=== PATIENT | female | born 1935 | race Caucasian/White ===

== ENCOUNTER 2018-08-17 09:55 | Observation (INO) | payer BC, MEDICARE ==
[2018-08-17] MEDS ORDERED: NORMAL SALINE 1,000 ML IV ONE (10:16)
[2018-08-17 10:39] LABS: Hematocrit 34.1 % (37.0-47.0); Hemoglobin 10.8 gm/dL (12.5-16.0); Mean Cell Volume 96.6 fl (78-100); Mean Corpuscular Hemoglobin 30.6 pg (27-31); Mean Corpuscular Hgb Conc 31.7 g/dl (32-36); Mean Platelet Volume 11.4 fl (8-12.5); Neutrophil # 16.7 K/mm3 (1.3-6.0); Neutrophil % 87.4 % (42-75.0); Platelet Count 183 K/mm3 (150-450); Red Blood Count 3.53 M/mm3 (4.2-5.4); Red Cell Distribution Width 12.8 % (11.5-14.0); White Blood Count 19.1 K/mm3 (4.0-10.5)
[2018-08-17 10:54] LABS: Albumin * 3.1 gm/dl (3.4-5.0); Anion Gap 10.9 mmol/L (6.8-13.8); BUN/Creatinine Ratio 22.8 (9.0-21.6); Bilirubin, Total 1.6 mg/dL (0.0-1.1); Ca. Corrected For Albumin 9.2 mg/dL (8.4-10.2); Calcium * 8.8 mg/dL (7.9-10.9); Carbon Dioxide 26.6 mmol/L (24-32.6); Potassium 4.5 mmol/L (3.4-4.6); Total Protein 6.3 gm/dL (6.2-8.2)
[2018-08-17 11:03] LABS: Urine Bilirubin 1 mg/dl (NEGATIVE); Urine Ketone Negative (NEGATIVE); Urine Nitrite Negative (NEGATIVE); Urine Protein Negative (NEGATIVE); Urine Specific Gravity 1.025 SP.GR. (1.005-1.010); Urine Urobilinogen Normal (NORMAL)
[2018-08-17 11:17] LABS: Urine Appearance Cloudy (CLEAR); Urine Bacteria 2+; Urine Blood 5 /ul (NEGATIVE); Urine Color Dark Yellow; Urine RBC TRACE /hpf (0-5); Urine WBC 25-50 /hpf (0-5)
--- NOTE | 2018-08-17 13:16 | ERNOTE ---
Medical Problem HPI - Narrative Date of Service: 08/17/18 - General Chief Complaint: Nausea/Vomiting Time Seen by Provider: 08/17/18 10:07 Source: family Exam Limitations: clinical condition - Immun/Allergies/Home Medications Immunizations: IMMUNIZATION HX Immunizations Up to Date Yes History of Influenza Vaccine Yes Hx Pneumococcal Vaccination Yes Allergies/Adverse Reactions: Allergies Iodinated Contrast- Oral and IV Dye Allergy (Verified 08/17/18 10:10) Home Medications: HOME MEDICATIONS Aspirin [Children's Aspirin] 162 mg PO DAILY 08/17/18 [Last Taken Unknown] Carbidopa/Levodopa PO TID 08/17/18 [Last Taken Unknown] FLUoxetine HCL [Fluoxetine HCl] 20 mg PO DAILY 08/17/18 [Last Taken Unknown] FLUoxetine HCL [Sarafem] 10 mg PO DAILY 08/17/18 [Last Taken Unknown] Liothyronine Sodium 12.5 mcg PO DAILY 08/17/18 [Last Taken Unknown] Lisinopril [Zestril] 10 mg PO DAILY 08/17/18 [Last Taken Unknown] [place] Carbonate 150 mg PO DAILY 08/17/18 [Last Taken Unknown] Omeprazole 40 mg PO DAILY 08/17/18 [Last Taken Unknown] QUEtiapine FUMARATE [Seroquel] 25 mg PO DAILY 08/17/18 [Last Taken Unknown] Vit A/Vit C/Vit E/Zinc/Copper [Preservision Areds Tablet] 1 each PO DAILY 02/27 [Last Taken Unknown] traZODone HCL [Trazodone HCl] 25 mg PO BID 08/17/18 [Last Taken Unknown] - History of Present History Narrative: Patient really cannot provide any history, this is obtained from the family. She lives at home with the family. Arrives via EMS. Family relates that she has been significantly declining since May. has recent ABx for bronchitis (Levaquin) that she is now finished with. She has been having vomiting and severe diarrhea or the last 24 hours. No apparent pain. She has not been able to take her home medications d/t the vomiting. Now unable to get up on her own d/t generalized weakness. No other history is available from the patient. Timing: constant Modifying Factors - (Improves): Present: other - nothing Modifying Factors - (Worsens): Present: other - nothing Review of Systems - Narrative Narrative: unobtainable d/t patient condition/communication deficit Medical History (Last Reviewed 08/17/18 @ 13:10 by Satinder Huff MD) Hiatal hernia Hx of TIA (transient ischemic attack) and stroke Hx of breast cancer Hx of chronic heart failure Hx of mastitis Hypotension Poor historian Medical record requested from [facility] - 08/17/18 Surgical History: Surgical History (Last Reviewed 08/17/18 @ 13:10 by Satinder Huff MD) History of lumpectomy of left breast Family History: Family History (Last Reviewed 08/17/18 @ 13:10 by Satinder Huff MD) Other No pertinent family history Social History: Preferred Language Chinese Do you have any sabianist or Yes: reorginized adventism cultural preference? Smoking Status Never smoker Alcohol Use sober Drug Use none No Social History Section defined Physical Exam - Physical Exam General Appearance: Present: alert, other - chronically ill appearing Head Exam: Present: normal inspection, no evidence of injury Eye Exam: Normal inspection: bilateral, PERRL: bilateral Ears, Nose, Throat: Present: dry mucous membranes Neck: Present: normal inspection Respiratory: Present: no respiratory distress, normal breath sounds, no accessory muscle use, lungs clear Cardiovascular/Chest: Present: regular rate, rhythm Gastrointestinal/Abdominal: Present: normal bowel sounds, nontender, nondistended, soft Back Exam: Absent: CVA tenderness (R), CVA tenderness (L) Extremity Exam: Present: other - no deformity Neurological Exam: Present: other - significant generalized weakness, no clear acute unilateral focal motor or sensory deficits. Skin Exam: Present: normal color, warm/dry ED Progress - Results and Orders Patient's Lab Results:: I have reviewed the patient's lab results. - Vital Signs Patient's Vital Signs:: I have reviewed the patient's vital signs. Vital Signs: Vital Signs 08/17/18 09:55 08/17/18 11:08 08/17/18 11:51 Temperature 37.8 C 37.2 C Pulse Rate 81 75 72 Respiratory Rate 22 H 19 15 Blood Pressure 149/64 148/86 132/51 O2 Sat by Pulse Oximetry 98 98 96 08/17/18 12:28 08/17/18 12:39 Temperature 37.2 C Pulse Rate 81 83 Respiratory Rate 15 20 Blood Pressure 162/58 H 158/60 H O2 Sat by Pulse Oximetry 95 93 - X-Ray X-Ray #1 X-Ray: abdomen Interpretation: Interp. by me X-ray Comments: I reviewed official radiology report - Progress/Reassessment Chief Complaint: Nausea/Vomiting Progress Note-Subjective: 08/17/18 13:14 IV fluids given. IV ABx. Dehydrated. Will admit obs for further treatment. D/W Dr Philip who will admit. Family agreeable. Departure Clinical Impression: Dehydration, UTI (urinary tract infection), Vomiting - Departure Disposition: Still a patient Condition: Fair
--- NOTE | 2018-08-17 19:07 | HP ---
Chief Complaint - Chief Complaint Date of Service: 08/17/18 Time of Service: 18:36 Chief Complaint: diarrhea, weakness, poor oral intake, not taking her meds, failure to thrive. History of Present Illness: Emma Singh is an 82 yo wh. female who is living in her home and being cared for mostly by her and occasionally by a daughter. They report that in May she was still ambulatory and negotiating stairs. She hasn't been happy and conversant eating well. She began losing some appetite and has a decline to a point where she is no longer able to ambulate. She is barely able to assist in transfers. She has been eating poorly. She stopped taking her medicine about 42 hours ago according to her . Her primary care doctor is in [place] and she last saw him about 4 weeks ago at which time she can still travel. She started having diarrhea yesterday and arrived here by ambulance covered in feces from head to toe. They couldn't get her to eat or drink. She is brought to the hospital per EMS. The emergency room examination showed a very dehydrated patient who is minimally conversant and poorly oriented. She recognizes familiar faces with her family. Her laboratory work shows leukocytosis of 19,000. The urinalysis suggested urinary tract infection with a lot of white cells but nitrates are negative. The flat plate of her abdomen suggests colitis in the descending and sigmoid colon areas etiology is uncertain. Liver enzymes show alkaline phosphatase is elevated at 250 etiology is uncertain. She at least has acute renal failure with an EGFR of 30. How much of this is chronic is unknown at this time. I finished the clinic and clinic work at about 5:30 and came to see her. Family is very upset that I had not been here earlier. She came to the medical floor at about 1:00 this afternoon. She did not have a diet ordered from the emergency room and they were upset that she hadn't had any water to drink. I asked them rather pointedly about how she got into such deplorable condition and it became obvious there. Defensive about it but at her current stage she is more than he can take care of at home. Medical History (Last Reviewed 08/17/18 @ 14:43 by Millie Rajan RN) Hiatal hernia Hx of TIA (transient ischemic attack) and stroke Hx of breast cancer Hx of chronic heart failure Hx of mastitis Hypotension Poor historian Medical record requested from [facility] in [facility] - 08/17/18 Surgical History: Surgical History (Last Reviewed 08/17/18 @ 14:43 by Millie Rajan RN) History of lumpectomy of right breast Family History: Family History (Last Updated 08/17/18 @ 14:43 by Millie Rajan RN) Other History of lumpectomy of right breast No pertinent family history Social History: Patient Lives/Resources With Spouse Utilized Occupation retired Preferred Language Ghanaian Do you have any lutheran or Yes: [facility] cultural preference? Smoking Status Never smoker Have you smoked in the past 12 No months Do you dip or chew tobacco No Alcohol Use sober Drug Use none No Social History Section defined Review Of Systems (GEN) - Review of Systems Generalized/Overall Review: Present: Weakness, Fever, Malaise, Weight loss EENTM: Present: Other - Mouth appears to be heavily coated and what is thought to be fecal material is present. Respiratory: Present: No Symptoms Reported Cardiac: Present: No Symptoms Reported Abdominal: Present: Abdominal Pain, Diarrhea. Absent: Nausea, Vomiting, Hematemesis, Bright blood from rectum Genitourinary: Present: Incontinent, Oliguria Musculoskeletal: Present: Other - Generalized motor weakness Neurological: Present: Depressed, Emotional Problems, Weakness, Pre-existing Deficit - Her says she has the start of Alzheimer's dementia. Skin: Present: No Symptoms Reported, Other - Covered in dried feces on arrival Endocrine: Present: Other - History of hypothyroidism. Takes T3 daily and liothyronine. Immunizations: IMMUNIZATION HX Immunizations Up to Date Yes History of Influenza Vaccine Yes Hx Pneumococcal Vaccination Yes Allergies/Adverse Reactions: Allergies Allergy/AdvReac Type Severity Reaction Status Date / Time Iodinated Contrast- Oral and Allergy Verified 08/17/18 10:10 IV Dye Home Medications: HOME MEDICATIONS Aspirin [Children's Aspirin] 162 mg PO DAILY 08/17/18 [Last Taken Unknown] Carbidopa/Levodopa PO TID 08/17/18 [Last Taken Unknown] FLUoxetine HCL [Fluoxetine HCl] 20 mg PO DAILY 08/17/18 [Last Taken Unknown] FLUoxetine HCL [Sarafem] 10 mg PO DAILY 08/17/18 [Last Taken Unknown] Liothyronine Sodium 12.5 mcg PO DAILY 08/17/18 [Last Taken Unknown] Lisinopril [Zestril] 10 mg PO DAILY 08/17/18 [Last Taken Unknown] [place] Carbonate 150 mg PO DAILY 08/17/18 [Last Taken Unknown] Omeprazole 40 mg PO DAILY 08/17/18 [Last Taken Unknown] QUEtiapine FUMARATE [Seroquel] 25 mg PO DAILY 08/17/18 [Last Taken Unknown] Simvastatin [Zocor] 20 mg PO DAILY 08/17/18 [Last Taken Unknown] Vit A/Vit C/Vit E/Zinc/Copper [Preservision Areds Softgel] 1 each PO BID 08/17/18 [Last Taken Unknown] Vit A/Vit C/Vit E/Zinc/Copper [Preservision Areds Tablet] 1 each PO DAILY 08/17/18 [Last Taken Unknown] Vit B12/Folic Acid/B6/Aa15 [Glycotrol Capsule] 1,000 mg PO DAILY 08/17/18 [Last Taken Unknown] traZODone HCL [Trazodone HCl] 25 mg PO BID 08/17/18 [Last Taken Unknown] Exam - Exam Vital Signs: Vital Signs - Last Taken Temp 37.3 C 08/17/18 13:12 Pulse 71 08/17/18 15:33 Resp 18 08/17/18 13:12 BP 142/55 08/17/18 13:12 Pulse Ox 95 08/17/18 13:12 Constitutional: Present: Alert, Cooperative, Moderate distress, Elderly, Thin and frail. Absent: Oriented x3 ENT Exam: Present: dry mucous membranes, other - Dried black material on the tongue difficult to remove. Eye Exam: bilateral eye: normal inspection, PERRL, EOMI Neck: Present: non-tender, limited range of motion. Absent: lymphadenopathy (R), lymphadenopathy (L) Back Exam: Present: normal inspection Breasts: Present: Exam deferred Respiratory: Present: chest non-tender, lungs clear, normal breath sounds, no respiratory distress, no accessory muscle use Cardiovascular/Chest: Present: normal peripheral pulses, regular rate, rhythm, no chest tenderness, no edema, no gallop, no JVD, no murmur, no rub Peripheral Pulses: carotid (R): 2+, carotid (L): 2+ Abdomen: Present: soft, nontender, nondistended, no rebound tenderness, no hepatospenomegaly, no masses, other - Hyperactive bowel sounds. 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 I asked her if she wanted to try to eat some supper and she said that she did. She said she would try to eat a little bit.. Absent: normal mood/affect, oriented x 3 Appearance: Present: disheveled, impaired insight, impaired recent memory Eye contact: Present: cooperative, good eye contact, decreased rate of speech. Absent: normal speech Thoughts: Present: no apparent hallucination. Absent: auditory hallucinations, delusions, normal mood /affect Diagnostic Studies: Abnormal Lab Results 08/17/18 08/17/18 08/17/18 Range/Units 10:30 10:30 10:58 WBC 19.1 H (4.0-10.5) K/mm3 RBC 3.53 L (4.2-5.4) M/mm3 Hgb 10.8 L (12.5-16.0) gm/dL Hct 34.1 L (37.0-47.0) % MCHC 31.7 L (32-36) g/dl Immature Gran % (Auto) 0.80 H (0.001-0.429) % Immature Gran # (Auto) 0.16 H (0.000-0.0310) K/mm3 Neutrophils % 87.4 H (42-75.0) % Lymphocytes % 4.3 L (20-51) % Neutrophils # 16.7 H (1.3-6.0) K/mm3 Lymphocytes # 0.82 L (1.5-3.5) k/mm3 Monocytes # 1.4 H (0.0-1.0) k/mm3 Chloride 109 H (97-106) mmol/L BUN 39 H (3-23) mg/dL Creatinine 1.71 H (0.4-1.4) mg/dL Est GFR (Non-Af Amer) 30 L (60-130) mL/min BUN/Creatinine Ratio 22.8 H (9.0-21.6) Total Bilirubin 1.6 H (0.0-1.1) mg/dL ALT 13 L (19-67) U/L Alkaline Phosphatase 250 H (50-170) U/L Albumin 3.1 L (3.4-5.0) gm/dl Lipase 53 L (73-393) U/L Urine Blood 5 H (NEGATIVE) /ul Urine Bilirubin 1 H (NEGATIVE) mg/dl Ur Leukocyte Esterase 500 H (NEGATIVE) /ul Urine WBC 25-50 H (0-5) /hpf Ur Epithelial Cells 10-25 H (0-5) /hpf Urine Bacteria 2+ H (NONE) Laboratory Results WBC 19.1 K/mm3 (4.0-10.5) H 08/17/18 10:30 RBC 3.53 M/mm3 (4.2-5.4) L 08/17/18 10:30 Hgb 10.8 gm/dL (12.5-16.0) L 08/17/18 10:30 Hct 34.1 % (37.0-47.0) L 08/17/18 10:30 MCV 96.6 fl (78-100) 08/17/18 10:30 MCH 30.6 pg (27-31) 08/17/18 10:30 MCHC 31.7 g/dl (32-36) L 08/17/18 10:30 RDW 12.8 % (11.5-14.0) 08/17/18 10:30 Plt Count 183 K/mm3 (150-450) 08/17/18 10:30 MPV 11.4 fl (8-12.5) 08/17/18 10:30 Immature Gran % (Auto) 0.80 % (0.001-0.429) H 08/17/18 10:30 Immature Gran # (Auto) 0.16 K/mm3 (0.000-0.0310) H 08/17/18 10:30 Neutrophils % 87.4 % (42-75.0) H 08/17/18 10:30 Lymphocytes % 4.3 % (20-51) L 08/17/18 10:30 Monocytes % 7.3 % (0.0-9) 08/17/18 10:30 Eosinophils % 0.1 % (0.0-3.0) 08/17/18 10:30 Basophils % 0.1 % (0.0-1.0) 08/17/18 10:30 Nucleated RBC % 0.0 k/mm3 (0-1) 08/17/18 10:30 Neutrophils # 16.7 K/mm3 (1.3-6.0) H 08/17/18 10:30 Lymphocytes # 0.82 k/mm3 (1.5-3.5) L 08/17/18 10:30 Monocytes # 1.4 k/mm3 (0.0-1.0) H 08/17/18 10:30 Eosinophils # 0.0 k/mm3 (0.0-0.7) 08/17/18 10:30 Absolute Basophils 0.0 k/mm3 (0.0-0.1) 08/17/18 10:30 Sodium 142 mmol/L (132-142) 08/17/18 10:30 Plasma Sodium 142 mmol/L (130-142) 08/17/18 10:30 Potassium 4.5 mmol/L (3.4-4.6) 08/17/18 10:30 Chloride 109 mmol/L (97-106) H 08/17/18 10:30 Carbon Dioxide 26.6 mmol/L (24-32.6) 08/17/18 10:30 Anion Gap 10.9 mmol/L (6.8-13.8) 08/17/18 10:30 BUN 39 mg/dL (3-23) H 08/17/18 10:30 Creatinine 1.71 mg/dL (0.4-1.4) H 08/17/18 10:30 Est GFR (Non-Af Amer) 30 mL/min (60-130) L 08/17/18 10:30 BUN/Creatinine Ratio 22.8 (9.0-21.6) H 08/17/18 10:30 Random Glucose 103 mg/dL (70-110) 08/17/18 10:30 Lactic Acid, Venous 1.5 mmol/L (0.4-2.0) 08/17/18 10:30 Calcium 8.8 mg/dL (7.9-10.9) 08/17/18 10:30 Calcium Adj for Albumin 9.2 mg/dL (8.4-10.2) 08/17/18 10:30 Total Bilirubin 1.6 mg/dL (0.0-1.1) H 08/17/18 10:30 AST 17 U/L (0-48) 08/17/18 10:30 ALT 13 U/L (19-67) L 08/17/18 10:30 Alkaline Phosphatase 250 U/L (50-170) H 08/17/18 10:30 Total Protein 6.3 gm/dL (6.2-8.2) 08/17/18 10:30 Albumin 3.1 gm/dl (3.4-5.0) L 08/17/18 10:30 Lipase 53 U/L (73-393) L 08/17/18 10:30 Urine Color Dark yellow 08/17/18 10:58 Urine Appearance Cloudy (CLEAR) 08/17/18 10:58 Urine pH 6.0 pH (5.0-7.0) 08/17/18 10:58 Ur Specific [place] 1.025 SP.GR. (1.005-1.010) 08/17/18 10:58 Urine Protein Negative mg/dL (NEGATIVE) 08/17/18 10:58 Urine Glucose (UA) Negative mg/dL (NEGATIVE) 08/17/18 10:58 Urine Ketones Negative mg/dL (NEGATIVE) 08/17/18 10:58 Urine Blood 5 /ul (NEGATIVE) H 08/17/18 10:58 Urine Nitrate Negative (NEGATIVE) 08/17/18 10:58 Urine Bilirubin 1 mg/dl (NEGATIVE) H 08/17/18 10:58 Urine Ictotest Negative (NEGATIVE) 08/17/18 10:58 Urine Urobilinogen Normal EU/dl (NORMAL) 08/17/18 10:58 Ur Leukocyte Esterase 500 /ul (NEGATIVE) H 08/17/18 10:58 Urine RBC Trace /hpf (0-5) 08/17/18 10:58 Urine WBC 25-50 /hpf (0-5) H 08/17/18 10:58 Ur Epithelial Cells 10-25 /hpf (0-5) H 08/17/18 10:58 Urine Bacteria 2+ (NONE) H 08/17/18 10:58 Urine Culture Comments Culture to follow 08/17/18 10:58 Stool Occult Blood N 08/17/18 11:39 Stl C.difficile Tox A&B Negative (Negative) 08/17/18 11:40 Assessment/Plan - Narrative Narrative: I will hold virtually all medications except for the thyroid and JEFF inhibitor. I'll recheck her lab and see if there's been any improvement in renal function and other parameters tomorrow morning. We'll monitor to see if the diarrhea continues. Stool analysis was set up in the emergency room. Blood cultures were also done as well as a UA and a urine culture. She received 1 L of IV fluid in the emergency room and looks better. Because of her renal failure I'm going to be very cautious and further fluid resuscitation and weight on morning lab before giving her more fluids. Because I don't know if her renal failure is chronic or acute I'll reassess that daily. If she has chronic renal failure then she may have some buildup of lithium and perhaps of quetiapine. If she has lithium toxicity then that could be aggravating her diarrhea. A lithium level was also ordered for tomorrow morning. She has some history of heart failure and so fluid volume replacement again has to be very cautiously administered. Reassessed for morning.
[2018-08-17 20:18] LABS: T4 Free * 0.52 ng/dL (0.76-1.46); TSH * 0.037 uIU/mL (0.358-3.74)
[2018-08-18 05:47] LABS: Hematocrit 31.6 % (37.0-47.0); Hemoglobin 9.8 gm/dL (12.5-16.0); Mean Cell Volume 96.6 fl (78-100); Mean Platelet Volume 12.4 fl (8-12.5); Platelet Count 167 K/mm3 (150-450); Red Blood Count 3.27 M/mm3 (4.2-5.4); Red Cell Distribution Width 13.1 % (11.5-14.0)
[2018-08-18 05:53] LABS: Albumin * 2.8 gm/dl (3.4-5.0); Anion Gap 14.5 mmol/L (6.8-13.8); BUN/Creatinine Ratio 26.6 (9.0-21.6); Bilirubin, Total 1.2 mg/dL (0.0-1.1); Ca. Corrected For Albumin 9.2 mg/dL (8.4-10.2); Calcium * 8.6 mg/dL (7.9-10.9); Carbon Dioxide 22.4 mmol/L (24-32.6); Potassium 3.9 mmol/L (3.4-4.6)
[2018-08-18] MEDS: LIOTHYRONINE SODIUM 5 MCG TABLET PO SCH (08:55)
[2018-08-18] MEDS: LISINOPRIL 10 MG TABLET PO SCH (08:55)
[2018-08-18] MEDS: POTASSIUM CHLORIDE 20 MEQ in DEXTROSE 5%-0.5 NORMAL SALINE 990 ML IV SCH (09:45)
[2018-08-18] MEDS: CARBIDOPA/LEVODOPA 25/100 1 TAB TABLET PO SCH ×2 (14:23→21:28)
[2018-08-18] MEDS: FLUoxetine HCL 10 MG CAPSULE PO SCH (14:23)
--- NOTE | 2018-08-18 16:55 | PN ---
Subjective - Date and Time Seen Date: 08/18/18 Time: 08:15 Subjective Narrative: This 82 yo wh female was admitted yesterday with dehydration, acute renal failure, diarrhea, adult failure to thrive. I spoke with Dr. Geneva Winston MD at [facility] this afternoon. She shared some lab from this summer that showed normal renal function so I suspect her renal failure is pre-renal and acute from the marked dehydration. This mornings lab #s are improved. The lithium level came ba ck this afternoon and is elevated at 1.3. She usually keeps it around .4-.5. Her white count has dropped from 19,000-16,000. The EGFR has improved from 30- 39. Stool analysis is still pending. Her mental status has improved and she is more responsive and conversational today. I spoke with her and reviewed today's results with him and also reviewed my conversation with Dr. Winston. I will continue to hold the lithium. I'll start her back on fluoxetine 10 mg 1 daily and then maybe 20 mg tomorrow. I'll resume her Quetiapine 25 mg at hs and trazodone at at bedtime. She has eaten better today than she has in some time. I'll recheck lab again tomorrow morning and perhaps give her another liter of fluid. 3 potential causes for her diarrhea would be the Leiothyronine and causing a hyperthyroid status, 2an infectious colitis of the descending and sigmoid colon, and 3lithium toxicity. Case management is working on correction placement. She has [employer] and Medicare. It is possible [employer] may approve her to skilled before having the 3 midnight requirement. We are awaiting a response from them. Objective - Review of Systems Generalized/Overall Review: Reports: Weakness EENTM: Reports: No Symptoms Reported Respiratory: Reports: No Symptoms Reported Cardiac: Reports: No Symptoms Reported Abdominal: Reports: Diarrhea - She has only had one loose stool this morning. Genitourinary Symptoms: Reports: No Symptoms Reported, Other - The lab suggests a UTI and it was a cath specimen that probably is. Otherwise is probably fecally contaminated. Musculoskeletal Complaints: Reports: No Symptoms Reported Neurological: Reports: Depressed, Emotional Problems, Weakness, Pre-existing Deficit - She has some cognitive deficit. Until she is fully rehydrated and recovered from this event we will be able to assess her mental status. She is improved from yesterday however. Skin: Reports: No Symptoms Reported Endocrine: Reports: No Symptoms Reported - Vitals Vitals: Last Vital Signs Temp 36.8 C 08/18/18 15:00 Pulse 64 08/18/18 15:00 Resp 18 08/18/18 15:00 BP 94/55 08/18/18 15:00 Pulse Ox 95 08/18/18 15:00 - Abnormal Lab Findings Abnormal Lab Findings: Abnormal Lab Results 08/17/18 08/17/18 08/18/18 Range/Units 10:30 10:30 05:36 WBC 16.0 H (4.0-10.5) K/mm3 RBC 3.27 L (4.2-5.4) M/mm3 Hgb 9.8 L (12.5-16.0) gm/dL Hct 31.6 L (37.0-47.0) % MCHC 31.0 L (32-36) g/dl Immature Gran % (Auto) 0.60 H (0.001-0.429) % Immature Gran # (Auto) 0.10 H (0.000-0.0310) K/mm3 Neutrophils % 81.0 H (42-75.0) % Lymphocytes % 10.2 L (20-51) % Neutrophils # 13.0 H (1.3-6.0) K/mm3 Monocytes # 1.2 H (0.0-1.0) k/mm3 Sodium (132-142) mmol/L Plasma Sodium (130-142) mmol/L Chloride (97-106) mmol/L Carbon Dioxide (24-32.6) mmol/L Anion Gap (6.8-13.8) mmol/L BUN (3-23) mg/dL Est GFR (Non-Af Amer) (60-130) mL/min BUN/Creatinine Ratio (9.0-21.6) Total Bilirubin (0.0-1.1) mg/dL ALT (19-67) U/L Alkaline Phosphatase (50-170) U/L Total Protein (6.2-8.2) gm/dL Albumin (3.4-5.0) gm/dl TSH 0.037 L (0.358-3.74) uIU/mL Free T4 0.52 L (0.76-1.46) ng/dL [place] 1.3 H (0.6-1.2) mmol/L 08/18/18 Range/Units 05:36 WBC (4.0-10.5) K/mm3 RBC (4.2-5.4) M/mm3 Hgb (12.5-16.0) gm/dL Hct (37.0-47.0) % MCHC (32-36) g/dl Immature Gran % (Auto) (0.001-0.429) % Immature Gran # (Auto) (0.000-0.0310) K/mm3 Neutrophils % (42-75.0) % Lymphocytes % (20-51) % Neutrophils # (1.3-6.0) K/mm3 Monocytes # (0.0-1.0) k/mm3 Sodium 144 H (132-142) mmol/L Plasma Sodium 144 H (130-142) mmol/L Chloride 111 H (97-106) mmol/L Carbon Dioxide 22.4 L (24-32.6) mmol/L Anion Gap 14.5 H (6.8-13.8) mmol/L BUN 37 H (3-23) mg/dL Est GFR (Non-Af Amer) 39 L D (60-130) mL/min BUN/Creatinine Ratio 26.6 H (9.0-21.6) Total Bilirubin 1.2 H (0.0-1.1) mg/dL ALT 13 L (19-67) U/L Alkaline Phosphatase 181 H (50-170) U/L Total Protein 6.0 L (6.2-8.2) gm/dL Albumin 2.8 L (3.4-5.0) gm/dl TSH (0.358-3.74) uIU/mL Free T4 (0.76-1.46) ng/dL [place] (0.6-1.2) mmol/L - Exam Constitutional: Present: Alert, Cooperative, Elderly, Thin and frail. Absent: Oriented x3 - Oriented to familiar faces and location. Not oriented to time or date. ENT Exam: Present: normal ENT inspection Neck: Present: non-tender Breasts: Present: Exam deferred Respiratory: Present: chest non-tender, lungs clear, normal breath sounds Cardiovascular/Chest: Present: normal peripheral pulses, regular rate, rhythm, no chest tenderness, no edema, no gallop, no JVD, no murmur, no rub Abdomen: Present: Normal bowel sounds - Bowels are hyperactive on admission and are normoactive today., soft, nontender, nondistended, no rebound tenderness, no hepatospenomegaly, no masses /Rectal: Present: Exam deferred Extremity: Present: non-tender, normal inspection, no pedal edema, no calf tenderness, normal capillary refill. Absent: normal range of motion Skin Exam: Present: normal color, warm/dry, no cyanosis Lymphatic: Present: no adenopathy Neurologic: Present: stone paver II-XII nml as tested, abnormal gait - She walked a few steps with a walker today with standby assist from physical therapy., motor weakness Appearance: Present: impaired insight, impaired recent memory. Absent: impaired remote memory Eye contact: Present: cooperative, good eye contact, decreased rate of speech, other - She is ataxic and apraxic. Absent: normal speech Thoughts: Present: no apparent hallucination. Absent: delusions Assessment/Plan Plan Narrative: See narrative above. - Problems/Diagnosis (1) Dehydration Problem: Acute (2) Diarrhea due to drug Problem: Resolved (3) [place] toxicity Problem: Acute Qualifiers: Encounter type: initial encounter Injury intent: accidental or unintentional Qualified Code(s): T56.891A - Toxic effect of other metals, accidental (unintentional), initial encounter (4) Colitis Problem: Acute (5) Alzheimer's dementia Problem: Chronic Qualifiers: Alzheimer's disease onset: late-onset Dementia behavioral disturbance: with behavioral disturbance Qualified Code(s): G30.1 - Alzheimer's disease with late onset; F02.81 - Dementia in other diseases classified elsewhere with behavioral disturbance (6) Acute renal injury due to hypovolemia Problem: Acute (7) Adult failure to thrive Problem: Chronic (8) Leukocytosis Problem: Acute Qualifiers: Leukocytosis type: bandemia Qualified Code(s): D72.825 - Bandemia (9) Acute hypernatremia Problem: Resolved (10) Anemia Problem: Chronic Qualifiers: Anemia type: other cause Other causes of anemia: chronic disease, other Qualified Code(s): D63.8 - Anemia in other chronic diseases classified elsewhere (11) UTI (urinary tract infection) Problem: Acute Qualifiers: Urinary tract infection type: acute cystitis Hematuria presence: without hematuria Qualified Code(s): N30.00 - Acute cystitis without hematuria
[2018-08-18] MEDS ORDERED: traZODone HCL 50 MG TABLET PO SCH (21:00)
[2018-08-19] MEDS: POTASSIUM CHLORIDE 20 MEQ in DEXTROSE 5%-0.5 NORMAL SALINE 990 ML IV SCH ×3 (02:18→08:48)
[2018-08-19 05:24] LABS: Hematocrit 30.5 % (37.0-47.0); Hemoglobin 9.3 gm/dL (12.5-16.0); Mean Cell Volume 98.4 fl (78-100); Mean Corpuscular Hgb Conc 30.5 g/dl (32-36); Mean Platelet Volume 11.8 fl (8-12.5); Neutrophil # 7.4 K/mm3 (1.3-6.0); Neutrophil % 71.5 % (42-75.0); Platelet Count 143 K/mm3 (150-450); Red Cell Distribution Width 13.1 % (11.5-14.0); White Blood Count 10.3 K/mm3 (4.0-10.5)
[2018-08-19 05:41] LABS: Albumin * 2.5 gm/dl (3.4-5.0); Anion Gap 9.9 mmol/L (6.8-13.8); Bilirubin, Total 0.7 mg/dL (0.0-1.1); CRP 2.4 mg/dL (0.0-0.9); Ca. Corrected For Albumin 9.1 mg/dL (8.4-10.2); Calcium * 8.2 mg/dL (7.9-10.9); Carbon Dioxide 24.1 mmol/L (24-32.6); Total Protein 5.6 gm/dL (6.2-8.2)
[2018-08-19] MEDS: CARBIDOPA/LEVODOPA 25/100 1 TAB TABLET PO SCH (07:45)
[2018-08-19] MEDS ORDERED: QUEtiapine FUMARATE 25 MG TABLET PO SCH (09:00)
[2018-08-19] MEDS: LIOTHYRONINE SODIUM 5 MCG TABLET PO SCH (09:38)
[2018-08-19] MEDS: FLUoxetine HCL 10 MG CAPSULE PO SCH (09:39)
[2018-08-19] MEDS: LISINOPRIL 10 MG TABLET PO SCH (09:40)
--- NOTE | 2018-08-19 10:14 | PN ---
Subjective - Date and Time Seen Date: 08/19/18 Time: 09:17 Subjective Narrative: Mrs. Singh continues to improve. she had an uneventful night. No more diarrhea. Eating small amounts only. Drinking Ensure. Case management still working on SNF placement. Objective - Review of Systems Generalized/Overall Review: Reports: Weakness, Malaise, Fatigue, Weight loss EENTM: Reports: No Symptoms Reported Respiratory: Reports: No Symptoms Reported Cardiac: Reports: No Symptoms Reported Abdominal: Reports: No Symptoms Reported, Other - poor appetite Genitourinary Symptoms: Reports: No Symptoms Reported Musculoskeletal Complaints: Reports: No Symptoms Reported Neurological: Reports: Weakness, Pre-existing Deficit - memory impairment and behaviors. Skin: Reports: No Symptoms Reported Endocrine: Reports: No Symptoms Reported - Vitals Vitals: Last Vital Signs Temp 35.8 C L 08/19/18 07:29 Pulse 62 08/19/18 07:29 Resp 12 08/19/18 07:29 BP 143/55 08/19/18 07:29 Pulse Ox 93 08/19/18 07:29 - Abnormal Lab Findings Abnormal Lab Findings: Abnormal Lab Results 08/17/18 08/19/18 08/19/18 Range/Units 10:30 05:15 05:15 RBC 3.10 L (4.2-5.4) M/mm3 Hgb 9.3 L (12.5-16.0) gm/dL Hct 30.5 L (37.0-47.0) % MCHC 30.5 L (32-36) g/dl Plt Count 143 L (150-450) K/mm3 Lymphocytes % 16.2 L (20-51) % Monocytes % 9.3 H (0.0-9) % Neutrophils # 7.4 H (1.3-6.0) K/mm3 ESR 47 H (0-15) mm/hr Chloride (97-106) mmol/L BUN (3-23) mg/dL Est GFR (Non-Af Amer) (60-130) mL/min BUN/Creatinine Ratio (9.0-21.6) Random Glucose (70-110) mg/dL ALT (19-67) U/L C-Reactive Prot, Quant (0.0-0.9) mg/dL Total Protein (6.2-8.2) gm/dL Albumin (3.4-5.0) gm/dl [place] 1.3 H (0.6-1.2) mmol/L 08/19/18 Range/Units 05:15 RBC (4.2-5.4) M/mm3 Hgb (12.5-16.0) gm/dL Hct (37.0-47.0) % MCHC (32-36) g/dl Plt Count (150-450) K/mm3 Lymphocytes % (20-51) % Monocytes % (0.0-9) % Neutrophils # (1.3-6.0) K/mm3 ESR (0-15) mm/hr Chloride 108 H (97-106) mmol/L BUN 26 H (3-23) mg/dL Est GFR (Non-Af Amer) 49 L D (60-130) mL/min BUN/Creatinine Ratio 23.0 H (9.0-21.6) Random Glucose 117 H D (70-110) mg/dL ALT 4 L (19-67) U/L C-Reactive Prot, Quant 2.4 H (0.0-0.9) mg/dL Total Protein 5.6 L (6.2-8.2) gm/dL Albumin 2.5 L (3.4-5.0) gm/dl [place] (0.6-1.2) mmol/L - Exam Constitutional: Present: Alert. Absent: Oriented x3 - to familiar faces and location. Not time or date. ENT Exam: Present: normal ENT inspection, moist mucous membranes Neck: Present: non-tender, limited range of motion. Absent: lymphadenopathy (R), lymphadenopathy (L), thyromegaly Breasts: Present: Exam deferred Respiratory: Present: chest non-tender, lungs clear, normal breath sounds, no respiratory distress, no accessory muscle use Cardiovascular/Chest: Present: normal peripheral pulses, regular rate, rhythm, no chest tenderness, no edema, no JVD, no murmur, no rub Abdomen: Present: Normal bowel sounds, soft, nontender, nondistended, no rebound tenderness, no hepatospenomegaly, no masses /Rectal: Present: Exam deferred Extremity: Present: non-tender, normal inspection, no pedal edema, no calf tenderness, normal capillary refill. Absent: normal range of motion, lower extremity edema, leg pain Skin Exam: Present: pallor Lymphatic: Present: no adenopathy Neurologic: Present: pt sitter II-XII nml as tested, alert, abnormal gait - Took a few steps with a walker yesterday.. Absent: normal mood/affect, oriented x 3 Appearance: Present: disheveled, impaired insight, impaired recent memory Eye contact: Present: cooperative, good eye contact, decreased rate of speech, other - ataxia and apraxia Thoughts: Absent: normal thought pattern, no apparent hallucination, auditory hallucinations, delusions, flight of ideas, tactile hallucinations, visual hallucinations, normal mood /affect Assessment/Plan Plan Narrative: This 82 yr old wh female is making gradual improvement. She is more alert again today. She is eating some. No more diarrhea. Lab: The CBC shows improvement in the white count down to 10,000. There are still some premature neutrophils. The hemoglobin He is down to 9.3 g and hematocrit of 30.5%. The MCV and RDW are normal. The sedimentation rate is elevated at 47 and a C-reactive protein is also elevated. The EGFR is up to 49. The BUN is 26 and creatinine of 1.3 with a BUN to creatinine ratio of 23. Glucose is 117 this morning. Liver function studies are all normal and the alkaline phosphatase is dropped from 250 on admission to 118 today. Etiology of why it was elevated in the first place is unknown. Her protein is low at 5.6 and albumin is low at 2.5. Microbiology showed blood cultures are no growth at 48 hours. The stool culture has not grown any pathogens. The urine culture has grown staph epi which is fairly resistant but is most likely a contaminant. The chest x-ray shows a left lower lobe and lingular lobe atelectasis versus pneumonia. Clinically I favor the former. Now that she is better hydrated I will repeat her chest x-ray. 1. Administer 1 L of D5 normal saline today 2. Repeat Rocephin 1 g IV piggyback 3. Continue physical and occupational therapy 4. Continue to work on care home placement. 5. Chest x-ray tomorrow morning. 6. Continue to hold lithium. - Problems/Diagnosis (1) Dehydration Problem: Acute (2) Diarrhea due to drug Problem: Resolved (3) [place] toxicity Problem: Acute Qualifiers: Encounter type: initial encounter Injury intent: accidental or unintentional Qualified Code(s): T56.891A - Toxic effect of other metals, accidental (unintentional), initial encounter (4) Colitis Problem: Acute (5) Alzheimer's dementia Problem: Chronic Qualifiers: Alzheimer's disease onset: late-onset Dementia behavioral disturbance: with behavioral disturbance Qualified Code(s): G30.1 - Alzheimer's disease with late onset; F02.81 - Dementia in other diseases classified elsewhere with behavioral disturbance (6) Acute renal injury due to hypovolemia Problem: Acute (7) Adult failure to thrive Problem: Chronic (8) Leukocytosis Problem: Acute Qualifiers: Leukocytosis type: bandemia Qualified Code(s): D72.825 - Bandemia (9) Acute hypernatremia Problem: Resolved (10) Anemia Problem: Chronic Qualifiers: Anemia type: other cause Other causes of anemia: chronic disease, other Qualified Code(s): D63.8 - Anemia in other chronic diseases classified elsewhere (11) UTI (urinary tract infection) Problem: Acute Qualifiers: Urinary tract infection type: acute cystitis Hematuria presence: without hematuria Qualified Code(s): N30.00 - Acute cystitis without hematuria
--- NOTE | 2018-08-19 11:06 | DS ---
(1) Dehydration Problem: Resolved (2) Diarrhea due to drug Problem: Resolved (3) [place] toxicity Problem: Acute Qualifiers: Encounter type: initial encounter Injury intent: accidental or unintentional Qualified Code(s): T56.891A - Toxic effect of other metals, accidental (unintentional), initial encounter (4) Colitis Problem: Resolved (5) Alzheimer's dementia Problem: Chronic Qualifiers: Alzheimer's disease onset: late-onset Dementia behavioral disturbance: with behavioral disturbance Qualified Code(s): G30.1 - Alzheimer's disease with late onset; F02.81 - Dementia in other diseases classified elsewhere with behavioral disturbance (6) Acute renal injury due to hypovolemia Problem: Resolved (7) Adult failure to thrive Problem: Chronic (8) Leukocytosis Problem: Resolved Qualifiers: Leukocytosis type: bandemia Qualified Code(s): D72.825 - Bandemia (9) Acute hypernatremia Problem: Resolved (10) Anemia Problem: Chronic Qualifiers: Anemia type: other cause Other causes of anemia: chronic disease, other Qualified Code(s): D63.8 - Anemia in other chronic diseases classified elsewhere (11) UTI (urinary tract infection) Problem: Resolved Qualifiers: Urinary tract infection type: acute cystitis Hematuria presence: without hematuria Qualified Code(s): N30.00 - Acute cystitis without hematuria Description of Stay: Tara Singh is an 82-year-old female who became acutely ill about 24 hours before arriving in the emergency room having had multiple episodes of diarrhea. On arrival she was hypotensive and extremely dehydrated. She was covered in feces from head to toe. She was stabilized in the emergency room with fluid resuscitation. She was appropriately cultured with blood, stool, and urine. She was admitted for the treatment of her diarrhea, dehydration, and to determine the cause of the diarrhea. Laboratory work was done in the emergency room. A lithium level was drawn but is a send out test and came back yesterday toxic at 1.3. Urine culture grew out staph epi which is almost certainly a contaminant. Blood cultures are no growth 2 at 48 hours. The stool culture has not grown out any pathogens to date. The chest x-ray showed left lower lobe and lingular lobe atelectasis versus pneumonia. There are no clinical findings to support pneumonia. Auscultation of the chest is clear. Initially her white count was elevated at 19,000. It dropped to 16,000 yesterday and the 10,000 today. She had significant bandemia yesterday and before yesterday but there are very few premature white cells on today's specimen. The lithium level yesterday dropped to 1.1. I have spoken with Dr. Geneva Jones M.D. who has been caring for Mrs. Singh for many years as a psychiatrist. I reviewed her medications with her and also reviewed her lab work. I believe lithium toxicity is what triggered the diarrhea and the severe dehydration and constellation of other problems thereby associated. She has been slowly rehydrated. She received 1 L of normal saline in the emergency room and another liter on the 08/17 on the floor and then another liter yesterday and it has been a continuous drip since yesterday at 125 mL per hour. She was very obtunded on admission. Yesterday she was answering a few questions appropriately but was significantly ataxic and apraxic. Today she is much more conversational and much less ataxic and apraxic. She developed some twitching and it is probably from being off of her Sinemet. That was resumed yesterday. I also allowed her to take her fluoxetine 10 mg yesterday and 20 mg this morning. I allowed her trazodone 25 mg at bedtime and and Quetiapine 25 mg at bedtime. I did not see any hallucinations or any overt behaviors. 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 These medicines have helped her be more stable. Dr. Winston believes she should stay on trazodone 25 mg twice a day to help control. Physical therapy has been working with her since yesterday. They were able to stand and take a few steps with a walker. Today they have had her up walking and she is walking better today. The patient is a good rehabilitation candidate. [place] halfway facility [place] been [place] at [place] in [place]. I will check an electrocardiogram prior to her discharge. Dr. Winston told me she has a history of prolonged QTc intervals. The Seroquel effects that significantly. I will also order a urinalysis and to do a mini cath to get the specimen. Her dispo sition is much improved. Procedures Performed: none Results and Findings: Pending Mircobiology Results 08/17/18 11:54 Blood Blood Culture - Preliminary NO GROWTH 24 HOURS 08/17/18 10:30 Blood Blood Culture - Preliminary NO GROWTH 24 HOURS 08/17/18 11:39 Stool Stool Culture - Preliminary No Pathogens Isolated Lab Pending Results 08/17/18 10:30: Erick 1.3 H 08/17/18 10:30: WBC 19.1 H, RBC 3.53 L, Hgb 10.8 L, Hct 34.1 L, MCV 96.6, MCH 30.6, MCHC 31.7 L, RDW 12.8, Plt Count 183, MPV 11.4, Immature Gran % (Auto) 0.80 H, Immature Gran # (Auto) 0.16 H, Neutrophils % 87.4 H, Lymphocytes % 4.3 L, Monocytes % 7.3, Eosinophils % 0.1, Basophils % 0.1, Nucleated RBC % 0.0, Neutrophils # 16.7 H, Lymphocytes # 0.82 L, Monocytes # 1.4 H, Eosinophils # 0.0, Absolute Basophils 0.0 08/17/18 10:30: Sodium 142, Plasma Sodium 142, Potassium 4.5, Chloride 109 H, Carbon Dioxide 26.6, Anion Gap 10.9, BUN 39 H, Creatinine 1.71 H, Est GFR (Non- Af Amer) 30 L, BUN/Creatinine Ratio 22.8 H, Random Glucose 103, Calcium 8.8, Calcium Adj for Albumin 9.2, Total Bilirubin 1.6 H, AST 17, ALT 13 L, Alkaline Phosphatase 250 H, Total Protein 6.3, Albumin 3.1 L, Lipase 53 L 08/17/18 10:30: Lactic Acid, Venous 1.5 08/17/18 10:30: TSH 0.037 L, Free T4 0.52 L 08/17/18 10:58: Urine Color Dark yellow, Urine Appearance Cloudy, Urine pH 6.0, Ur Specific [place] 1.025, Urine Protein Negative, Urine Glucose (UA) Negative, Urine Ketones Negative, Urine Blood 5 H, Urine Nitrate Negative, Urine Bilirubin 1 H, Urine Ictotest Negative, Urine Urobilinogen Normal, Ur Leukocyte Esterase 500 H, Urine RBC Trace, Urine WBC 25-50 H, Ur Epithelial Cells 10-25 H, Urine Bacteria 2+ H, Urine Culture Comments Culture to follow 08/17/18 11:39: Stool Occult Blood N 08/17/18 11:40: Stl C.difficile Tox A&B Negative 08/17/18 21:26: Free T3 1.4 L, Total T3 36 L 08/17/18 21:26: Lactic Acid, Venous 1.0 08/18/18 05:36: WBC 16.0 H, RBC 3.27 L, Hgb 9.8 L, Hct 31.6 L, MCV 96.6, MCH 30.0, MCHC 31.0 L, RDW 13.1, Plt Count 167, MPV 12.4, Immature Gran % (Auto) 0.60 H, Immature Gran # (Auto) 0.10 H, Neutrophils % 81.0 H, Lymphocytes % 10.2 L, Monocytes % 7.7, Eosinophils % 0.4, Basophils % 0.1, Nucleated RBC % 0.0, Neutrophils # 13.0 H, Lymphocytes # 1.64, Monocytes # 1.2 H, Eosinophils # 0.1, Absolute Basophils 0.0 08/18/18 05:36: Sodium 144 H, Plasma Sodium 144 H, Potassium 3.9, Chloride 111 H, Carbon Dioxide 22.4 L, Anion Gap 14.5 H, BUN 37 H, Creatinine 1.39, Est GFR (Non-Af Amer) 39 L D, BUN/Creatinine Ratio 26.6 H, Random Glucose 88, Calcium 8.6, Calcium Adj for Albumin 9.2, Total Bilirubin 1.2 H, AST 17, ALT 13 L, Alkaline Phosphatase 181 H, Total Protein 6.0 L, Albumin 2.8 L 08/18/18 05:36: Lactic Acid, Venous 1.2 08/18/18 05:36: Erick 1.1 08/19/18 05:15: WBC 10.3 D, RBC 3.10 L, Hgb 9.3 L, Hct 30.5 L, MCV 98.4, MCH 30.0, MCHC 30.5 L, RDW 13.1, Plt Count 143 L, MPV 11.8, Immature Gran % (Auto) 0.30, Immature Gran # (Auto) 0.03, Neutrophils % 71.5, Lymphocytes % 16.2 L, Monocytes % 9.3 H, Eosinophils % 2.4, Basophils % 0.3, Nucleated RBC % 0.0, Neutrophils # 7.4 H, Lymphocytes # 1.67, Monocytes # 1.0, Eosinophils # 0.3, Absolute Basophils 0.0 08/19/18 05:15: ESR 47 H 08/19/18 05:15: Sodium 138, Plasma Sodium 138, Potassium 4.0, Chloride 108 H, Carbon Dioxide 24.1, Anion Gap 9.9, BUN 26 H, Creatinine 1.13, Est GFR (Non-Af Amer) 49 L D, BUN/Creatinine Ratio 23.0 H, Random Glucose 117 H D, Calcium 8.2, Calcium Adj for Albumin 9.1, Total Bilirubin 0.7, AST 12, ALT 4 L, Alkaline Phosphatase 118, C-Reactive Prot, Quant 2.4 H, Total Protein 5.6 L, Albumin 2.5 L Discharge Location: [facility] Disposition: SNF Condition: Fair Face to Face Encounter completed per [facility] Guidelines: No Level of Care: SNF Discharge Activity: Activity as tolerated, Other - Up in chair for al meals and prn. PT/OT to walk and exercise daily. Discharge Diet: Mech soft, Other - Ensure tid between meals Fdc Therapy: Physicial Therapy, Occupation Therapy Additional Patient Instructions (free text): -Please make TCM appointment unless retirement discharge. Thank you! Jyothi @ [phone]. Complete Home Medications List: Complete Home Medication List: Aspirin [Children's Aspirin] 162 mg PO DAILY 08/17/18 FLUoxetine HCL [Fluoxetine HCl] 20 mg PO DAILY 08/17/18 Lisinopril [Zestril] 10 mg PO DAILY 08/17/18 Omeprazole 40 mg PO DAILY 08/17/18 QUEtiapine FUMARATE [Seroquel] 25 mg PO DAILY 08/17/18 Vit A/Vit C/Vit E/Zinc/Copper [Preservision Areds Softgel] 1 each PO BID 08/17/18 Vit B12/Folic Acid/B6/Aa15 [Glycotrol Capsule] 1,000 mg PO DAILY 08/17/18 traZODone HCL [Trazodone HCl] 25 mg PO BID 08/17/18 Carbidopa/Levodopa 25/100 [Sinemet 25/100] 0.5 tab PO TID 08/18/18
[2018-08-19 11:47] LABS: Urine Bilirubin Negative (NEGATIVE); Urine Blood 250 /ul (NEGATIVE); Urine Ketone Negative (NEGATIVE); Urine Nitrite Negative (NEGATIVE); Urine Protein Negative (NEGATIVE); Urine Specific Gravity <=1.005 SP.GR. (1.005-1.010); Urine Urobilinogen Normal (NORMAL); Urine pH 6.5 pH (5.0-7.0)
[2018-08-19 12:03] LABS: Urine Appearance Slightly Cloudy (CLEAR); Urine Color Yellow
[2018-08-19 12:04] LABS: Urine Bacteria 1+
[2018-08-19 13:14] VITALS: BP 140/62
== END 2018-08-19 13:00 ==
LOC: ER 09:55 → MS 09:55
PROVIDERS: ADMIT Family Medicine; ATTEND Family Medicine
DX: N30.00 Acute cystitis without hematuria; T56.891A Toxic effect of other metals, accidental (unintentional), initial encounter; D63.8 Anemia in other chronic diseases classified elsewhere; G30.9 Alzheimer's disease, unspecified; R62.7 Adult failure to thrive; E87.0 Hyperosmolality and hypernatremia; K52.9 Noninfective gastroenteritis and colitis, unspecified; F02.80 Dementia in other diseases classified elsewhere, unspecified severity, without behavioral disturbance, psychotic disturbance, mood disturbance, and anxiety; N17.8 Other acute kidney failure; E86.0 Dehydration; D72.825 Bandemia
CPT/HCPCS: 36415; 71010; 71045; 74019; 74020; 80053; 80178; 81001; 82272; 83605; 83690; 84439; 84443; 84480; 84481; 85025; 85652; 86140; 87040; 87045; 87046; 87086; 87493; 93005; 96361; 96365; 96366; 96367; 97110; 97116; 97162; 97165; 97530; 97535; 99285; G0378; G8978; G8979; G8980; G8987; G8988; G8989

== ENCOUNTER 2018-12-10 10:41 | Observation (INO) ==
--- NOTE | 2018-12-10 11:28 | ERNOTE ---
Abdominal HPI - Narrative Date of Service: 12/10/18 - General Chief Complaint: Abdominal Pain Time Seen by Provider: 12/10/18 11:11 Source: patient, family Exam Limitations: no limitations - Immun/Allergies/Home Medications Immunizatons: IMMUNIZATION HX Immunizations Up to Date Yes History of Influenza Vaccine More Information Required Hx Pneumococcal Vaccination More Information Required Allergies/Adverse Reactions: Allergies Iodinated Contrast- Oral and IV Dye Allergy (Verified 12/10/18 11:07) Home Medications: HOME MEDICATIONS Aspirin [Children's Aspirin] 162 mg PO HS 08/17/18 [Last Taken Unknown] FLUoxetine HCL [Fluoxetine HCl] 20 mg PO DAILY 08/17/18 [Last Taken Unknown] Lisinopril [Zestril] 10 mg PO DAILY 08/17/18 [Last Taken Unknown] QUEtiapine FUMARATE [Seroquel] 25 mg PO HS 08/17/18 [Last Taken Unknown] traZODone HCL [Trazodone HCl] 25 mg PO BID 08/17/18 [Last Taken Unknown] Carbidopa/Levodopa 25/100 [Sinemet 25/100] 0.5 tab PO TID 08/18/18 [Last Taken Unknown] Cyanocobalamin (Vitamin B-12) [Vitamin B-12] 1,000 mcg PO DAILY 12/10/18 [Last Taken Unknown] Liothyronine Sodium 37.5 mcg PO DAILY 12/10/18 [Last Taken Unknown] Omeprazole 40 mg PO DAILY 12/10/18 [Last Taken Unknown] Simethicone [Gas Relief] 80 mg PO Q6H PRN 12/10/18 [Last Taken Unknown] - History of Present Illness Narrative: patient present with nausea and diarrhea for about one week. has become progressively weaker and cannot hardly walk at present Timing: constant, getting worse Quality: moderate, dullness Activities at Onset: none Modifying Factors - (Improves): Present: other - nothing Associated Symptoms: Present: nausea, loss of appetite, other - diarrheA Prior Abdominal Problems: Present: none Review of Systems - Review of Systems Constitutional: Present: See HPI, weakness, fatigue, malaise EYE: Present: no symptoms reported ENT: Present: no symptoms reported Respiratory: Present: no symptoms reported Cardiology: Present: no symptoms reported Gastrointestinal/Abdominal: Present: See HPI, nausea, diarrhea, eating less, drinking less Genitourinary: Present: no symptoms reported Musculoskeletal: Present: no symptoms reported Skin: Present: no symptoms reported Neurological: Present: no symptoms reported Endocrine: Present: no symptoms reported Hematologic/Lymphatic: Present: no symptoms reported Psych: Present: no symptoms reported All Other Systems: All systems neg except as marked Medical History (Last Reviewed 12/10/18 @ 12:48 by Katja Day RN) Hiatal hernia Hx of TIA (transient ischemic attack) and stroke Hx of breast cancer Hx of chronic heart failure Hx of mastitis Hypotension Poor historian Medical record requested from [facility] - 08/17/18 Surgical History: Surgical History (Last Reviewed 12/10/18 @ 12:48 by Kataj Day RN) History of lumpectomy of right breast Family History: Family History (Last Reviewed 12/10/18 @ 12:48 by Katja Day RN) Other No pertinent family history Social History: Preferred Language Puerto Rican Do you have any zoroastrianism or No cultural preference? Smoking Status Unknown if ever smoked Alcohol Use none Drug Use none No Social History Section defined Physical Exam - Physical Exam General Appearance: Present: moderate distress, lethargic Head Exam: Present: normal inspection, no evidence of injury Eye Exam: Normal inspection: bilateral, PERRL: bilateral, EOMI: bilateral Ears, Nose, Throat: Present: normal ENT inspection, normal pharynx Neck: Present: normal inspection, nontender Respiratory: Present: no respiratory distress, normal breath sounds, no accessory muscle use, chest nontender, lungs clear Cardiovascular/Chest: Present: regular rate, rhythm, no murmur, normal peripheral pulses Gastrointestinal/Abdominal: Present: tenderness, abnormal bowel sounds, distended Back Exam: Present: normal inspection, normal range of motion, no CVA tenderness, no vertebral tenderness Extremity Exam: Present: normal inspection, non-tender, normal range of motion, no edema Neurological Exam: Present: alert, oriented, normal mood/affect, no motor/sensory deficits Skin Exam: Present: normal color, warm/dry Lymphatic Exam: Present: no adenopathy Progress - Date and Time Seen: Date and Time: 12/10/18 13:58 PATIENT UNCHANGED, CASE DISCUSSED WITH DR DEE, TO ADMIT TO OBSERVATION - Results and Orders Patient's Lab Results:: I have reviewed the patient's lab results. - Vital Signs Patient's Vital Signs:: I have reviewed the patient's vital signs. Vital Signs: Vital Signs 12/10/18 11:04 Temperature 37.1 C Pulse Rate 76 Respiratory Rate 15 Blood Pressure 162/75 H O2 Sat by Pulse Oximetry 96 - X-Ray X-Ray #1 X-Ray: abdomen Interpretation: Interp. by me - Progress/Reassessment Chief Complaint: Abdominal Pain - Transfer of Care Expected Disposition: Discharge Plan - Plan Plan: to admit to observation Departure Clinical Impression: Dehydration, moderate, Urinary tract infection - Departure Disposition: Still a patient Condition: Fair
[2018-12-10] MEDS ORDERED: NORMAL SALINE 1,000 ML IV ONE (11:32)
[2018-12-10 12:00] LABS: Hematocrit 39.3 % (37.0-47.0); Hemoglobin 12.6 gm/dL (12.5-16.0); Mean Cell Volume 98.5 fl (78-100); Mean Corpuscular Hemoglobin 31.6 pg (27-31); Mean Corpuscular Hgb Conc 32.1 g/dl (32-36); Mean Platelet Volume 10.3 fl (8-12.5); Neutrophil % 87.3 % (42-75.0); Platelet Count 182 K/mm3 (150-450); Red Blood Count 3.99 M/mm3 (4.2-5.4); Red Cell Distribution Width 13.1 % (11.5-14.0); White Blood Count 10.3 K/mm3 (4.0-10.5)
[2018-12-10 12:12] LABS: Albumin * 3.6 gm/dl (3.4-5.0); Anion Gap 14.1 mmol/L (6.8-13.8); Bilirubin, Total 0.8 mg/dL (0.0-1.1); Ca. Corrected For Albumin 9.1 mg/dL (8.4-10.2); Calcium * 9.1 mg/dL (7.9-10.9); Carbon Dioxide 25.6 mmol/L (24-32.6); Potassium 3.7 mmol/L (3.4-4.6); Total Protein 7.3 gm/dL (6.2-8.2)
[2018-12-10 12:26] LABS: Urine Bilirubin Negative (NEGATIVE); Urine Blood Negative /ul (NEGATIVE); Urine Ketone 5 mg/dL (NEGATIVE); Urine Nitrite Negative (NEGATIVE); Urine Protein Negative (NEGATIVE); Urine Specific Gravity >=1.030 SP.GR. (1.005-1.010); Urine Urobilinogen Normal (NORMAL)
[2018-12-10 12:33] LABS: Urine Appearance Clear (CLEAR); Urine Color Yellow; Urine RBC 0-5 /hpf (0-5)
[2018-12-10 12:34] LABS: Urine Bacteria 3+
[2018-12-10] MEDS ORDERED: NORMAL SALINE 1,000 ML IV PRN (14:03)
[2018-12-10] MEDS ORDERED: ONDANSETRON HCL/PF 2 MG/ML VIAL IV PRN (14:04)
[2018-12-10] MEDS: CIPROFLOXACIN IN 5 % DEXTROSE 200 MG/100 ML BAG IV SCH (14:43)
[2018-12-10] MEDS ORDERED: ACETAMINOPHEN 500 MG TABLET PO PRN (17:04)
[2018-12-10] MEDS ORDERED: SIMETHICONE 80 MG TAB.CHEW PO PRN (17:09)
[2018-12-10] MEDS ORDERED: HALOPERIDOL 1 MG TABLET PO PRN (17:28)
--- NOTE | 2018-12-10 17:45 | HP ---
Chief Complaint - Chief Complaint Date of Service: 12/10/18 Time of Service: 17:31 Chief Complaint: I have diarrhea, abdominal pain, and nausea for more than 1 week History of Present Illness: 83-year-old female with past medical history of hiatal hernia, TIA, breast cancer, CHF, major depressive disorder, progressive cognitive dysfunction, and psychosis was brought to our ER due to multiple episodes of nonbloody diarrhea accompanied by abdominal pain and nausea for more than 2 weeks duration. Patient's family report that patient was hospitalized back in August of last year and was treated for a UTI with antibiotics and has not had an issue until now. Patient's diarrhea started more than a week ago and worsened in the past few days. Patient became incontinent of her stools and gradually became weak with malaise and lethargy. Patient was administered Imodium this morning by her daughter but her diarrhea continued, her generalized weakness got to the point where she can walk so the family decided to bring her to our ER. Medical History (Last Reviewed 12/10/18 @ 14:45 by Norma Crocker RN) Hiatal hernia Hx of TIA (transient ischemic attack) and stroke Hx of breast cancer Hx of chronic heart failure Hx of mastitis Hypotension Poor historian Medical record requested from [facility] in [facility] - 08/17/18 Surgical History: Surgical History (Last Reviewed 12/10/18 @ 14:46 by Nroma Crocker RN) History of lumpectomy of right breast Family History: Family History (Last Reviewed 12/10/18 @ 14:46 by Norma Crocker RN) Other No pertinent family history Social History: Patient Lives/Resources With Spouse Utilized Occupation retired Preferred Language Ghanaian Do you have any anglican or Yes: [facility] cultural preference? Smoking Status Never smoker Have you smoked in the past 12 No months Alcohol Use none Drug Use none No Social History Section defined Peds Patient Hx - Developmental: No Pertinent Hx Peds Patient Hx - Medical: No Pertinent Hx Peds Patient Hx - Cardiac/Respiratory: No Pertinent Hx Peds Patient Hx - Surgical: No Surgical History Patient History - Cancer: No Hx of Cancer Review Of Systems (GEN) - Review of Systems Generalized/Overall Review: Present: Weakness, Fatigue, Weight loss EENTM: Present: No Symptoms Reported Respiratory: Present: No Symptoms Reported Cardiac: Present: No Symptoms Reported Abdominal: Present: Nausea, Abdominal Pain, Diarrhea Genitourinary: Present: No Symptoms Reported Musculoskeletal: Present: No Symptoms Reported Neurological: Present: Weakness Skin: Present: No Symptoms Reported Endocrine: Present: No Symptoms Reported Immunizations: IMMUNIZATION HX Immunizations Up to Date Yes History of Influenza Vaccine More Information Required Hx Pneumococcal Vaccination More Information Required Allergies/Adverse Reactions: Allergies Allergy/AdvReac Type Severity Reaction Status Date / Time Iodinated Contrast- Oral and Allergy Verified 12/10/18 11:07 IV Dye Home Medications: HOME MEDICATIONS Aspirin [Children's Aspirin] 162 mg PO HS 08/17/18 [Last Taken Unknown] FLUoxetine HCL [Fluoxetine HCl] 20 mg PO DAILY 08/17/18 [Last Taken Unknown] Lisinopril [Zestril] 10 mg PO DAILY 08/17/18 [Last Taken Unknown] QUEtiapine FUMARATE [Seroquel] 25 mg PO HS 08/17/18 [Last Taken Unknown] traZODone HCL [Trazodone HCl] 25 mg PO BID 08/17/18 [Last Taken Unknown] Carbidopa/Levodopa 25/100 [Sinemet 25/100] 0.5 tab PO TID 08/18/18 [Last Taken Unknown] Cyanocobalamin (Vitamin B-12) [Vitamin B-12] 1,000 mcg PO DAILY 12/10/18 [Last Taken Unknown] Liothyronine Sodium 37.5 mcg PO DAILY 12/10/18 [Last Taken Unknown] Omeprazole 40 mg PO DAILY 12/10/18 [Last Taken Unknown] Simethicone [Gas Relief] 80 mg PO Q6H PRN 12/10/18 [Last Taken Unknown] Exam - Exam Vital Signs: Vital Signs - Last Taken Temp 37.7 C 12/10/18 14:46 Pulse 76 12/10/18 14:46 Resp 17 12/10/18 14:46 BP 162/72 H 12/10/18 14:46 Pulse Ox 96 12/10/18 14:46 Constitutional: Present: Alert, Oriented x3, Cooperative, Well developed, No distress, Lethargic, Elderly, Thin and frail, Looks Older than stated age ENT Exam: Present: normal ENT inspection, hearing grossly normal, pharynx normal, TMs normal Eye Exam: bilateral eye: normal inspection, PERRL, EOMI Neck: Present: non-tender, full range of motion, supple, normal inspection, trachea midline, limited range of motion Back Exam: Present: normal inspection, no CVA tenderness, no vertebral tenderness Breasts: Present: Exam deferred Respiratory: Present: chest non-tender, lungs clear, normal breath sounds, no respiratory distress, no accessory muscle use Cardiovascular/Chest: Present: normal peripheral pulses, regular rate, rhythm, no chest tenderness, no edema, no gallop, no JVD, no murmur Peripheral Pulses: carotid (R): 3+, carotid (L): 3+, femoral (R): 3+, femoral (L): 3+ Abdomen: Present: soft, nondistended, tender - Right upper and lower quadrant tenderness, high pitched bowel sounds /Rectal: Present: Exam deferred Extremity: Present: normal range of motion, non-tender, normal inspection, no pedal edema, no calf tenderness Skin Exam: Present: normal color, warm/dry, no cyanosis Lymphatic: Present: no adenopathy Neurologic: Present: resident care spec II-XII nml as tested, normal cerebellar test, no motor/sensory deficits, alert, disoriented x 3 Appearance: Present: disheveled, impaired insight, impaired recent memory, impaired remote memory Eye contact: Present: cooperative, avoids eye contact, belligerent Thoughts: Present: normal mood /affect Diagnostic Studies: Abnormal Lab Results 12/10/18 12/10/18 12/10/18 Range/Units 11:50 11:50 12:22 RBC 3.99 L (4.2-5.4) M/mm3 MCH 31.6 H (27-31) pg Immature Gran % (Auto) 0.50 H (0.001-0.429) % Immature Gran # (Auto) 0.05 H (0.000-0.0310) K/mm3 Neutrophils % 87.3 H (42-75.0) % Lymphocytes % 5.1 L (20-51) % Neutrophils # 9.0 H (1.3-6.0) K/mm3 Lymphocytes # 0.52 L (1.5-3.5) k/mm3 Anion Gap 14.1 H (6.8-13.8) mmol/L BUN 24 H (3-23) mg/dL BUN/Creatinine Ratio 27.0 H (9.0-21.6) ALT 7 L (19-67) U/L Lipase 44 L (73-393) U/L Ur Leukocyte Esterase 25 H (NEGATIVE) /ul Urine WBC 5-10 H (0-5) /hpf Urine Bacteria 3+ H (NONE) Laboratory Results WBC 10.3 K/mm3 (4.0-10.5) 12/10/18 11:50 RBC 3.99 M/mm3 (4.2-5.4) L 12/10/18 11:50 Hgb 12.6 gm/dL (12.5-16.0) 12/10/18 11:50 Hct 39.3 % (37.0-47.0) 12/10/18 11:50 MCV 98.5 fl (78-100) 12/10/18 11:50 MCH 31.6 pg (27-31) H 12/10/18 11:50 MCHC 32.1 g/dl (32-36) 12/10/18 11:50 RDW 13.1 % (11.5-14.0) 12/10/18 11:50 Plt Count 182 K/mm3 (150-450) 12/10/18 11:50 MPV 10.3 fl (8-12.5) 12/10/18 11:50 Immature Gran % (Auto) 0.50 % (0.001-0.429) H 12/10/18 11:50 Immature Gran # (Auto) 0.05 K/mm3 (0.000-0.0310) H 12/10/18 11:50 Neutrophils % 87.3 % (42-75.0) H 12/10/18 11:50 Lymphocytes % 5.1 % (20-51) L 12/10/18 11:50 Monocytes % 5.3 % (0.0-9) 12/10/18 11:50 Eosinophils % 1.7 % (0.0-3.0) 12/10/18 11:50 Basophils % 0.1 % (0.0-1.0) 12/10/18 11:50 Nucleated RBC % 0.0 k/mm3 (0-1) 12/10/18 11:50 Neutrophils # 9.0 K/mm3 (1.3-6.0) H 12/10/18 11:50 Lymphocytes # 0.52 k/mm3 (1.5-3.5) L 12/10/18 11:50 Monocytes # 0.5 k/mm3 (0.0-1.0) 12/10/18 11:50 Eosinophils # 0.2 k/mm3 (0.0-0.7) 12/10/18 11:50 Absolute Basophils 0.0 k/mm3 (0.0-0.1) 12/10/18 11:50 Sodium 142 mmol/L (132-142) 12/10/18 11:50 Plasma Sodium 142 mmol/L (130-142) 12/10/18 11:50 Potassium 3.7 mmol/L (3.4-4.6) 12/10/18 11:50 Chloride 106 mmol/L (97-106) 12/10/18 11:50 Carbon Dioxide 25.6 mmol/L (24-32.6) 12/10/18 11:50 Anion Gap 14.1 mmol/L (6.8-13.8) H 12/10/18 11:50 BUN 24 mg/dL (3-23) H 12/10/18 11:50 Creatinine 0.89 mg/dL (0.4-1.4) 12/10/18 11:50 Est GFR (Non-Af Amer) 64 mL/min (60-130) 12/10/18 11:50 BUN/Creatinine Ratio 27.0 (9.0-21.6) H 12/10/18 11:50 Random Glucose 108 mg/dL (70-110) 12/10/18 11:50 Calcium 9.1 mg/dL (7.9-10.9) 12/10/18 11:50 Calcium Adj for Albumin 9.1 mg/dL (8.4-10.2) 12/10/18 11:50 Total Bilirubin 0.8 mg/dL (0.0-1.1) 12/10/18 11:50 AST 16 U/L (0-48) 12/10/18 11:50 ALT 7 U/L (19-67) L 12/10/18 11:50 Alkaline Phosphatase 92 U/L (50-170) 12/10/18 11:50 Total Protein 7.3 gm/dL (6.2-8.2) 12/10/18 11:50 Albumin 3.6 gm/dl (3.4-5.0) 12/10/18 11:50 Amylase 36 U/L (25-115) 12/10/18 11:50 Lipase 44 U/L (73-393) L 12/10/18 11:50 Urine Color Yellow 12/10/18 12:22 Urine Appearance Clear (CLEAR) 12/10/18 12:22 Urine pH 6.0 pH (5.0-7.0) 12/10/18 12:22 Ur Specific [place] >=1.030 SP.GR. (1.005-1.010) 12/10/18 12:22 Urine Protein Negative mg/dL (NEGATIVE) 12/10/18 12:22 Urine Glucose (UA) Negative mg/dL (NEGATIVE) 12/10/18 12:22 Urine Ketones 5 mg/dL (NEGATIVE) 12/10/18 12:22 Urine Blood Negative /ul (NEGATIVE) 12/10/18 12:22 Urine Nitrate Negative (NEGATIVE) 12/10/18 12:22 Urine Bilirubin Negative mg/dl (NEGATIVE) 12/10/18 12:22 Urine Urobilinogen Normal EU/dl (NORMAL) 12/10/18 12:22 Ur Leukocyte Esterase 25 /ul (NEGATIVE) H 12/10/18 12:22 Urine RBC 0-5 /hpf (0-5) 12/10/18 12:22 Urine WBC 5-10 /hpf (0-5) H 12/10/18 12:22 Ur Epithelial Cells 0-5 /hpf (0-5) 12/10/18 12:22 Urine Bacteria 3+ (NONE) H 12/10/18 12:22 Urine Culture Comments Culture to follow 12/10/18 12:22 Assessment/Plan - Narrative Narrative: Patient was evaluated in medical chart was reviewed and decision to admit with a diagnosis of intractable diarrhea with moderate dehydration and UTI was taken. Patient was admitted to outpatient observation for aggressive IV hydration and treatment with IV antibiotics for UTI. Stool sample has been ordered for C. difficile. Abdominal x-rays negative for any acute pathological findings, therefore patient will be treated with antidiarrheals, antiemetics for nausea and antipsychotics given the fact that she has been aggressive and agitated since being transferred to the [facility]. Her family has been brief in her condition and the treatment plan and everybody is in agreement. Patient will be reevaluated and we will monitor her progress. - Assessment/Plan (1) Intractable diarrhea Problem: Acute (2) Dehydration, moderate Problem: Acute (3) Psychosis Problem: Acute (4) MDD (major depressive disorder) Problem: Acute
[2018-12-10] MEDS: NORMAL SALINE 1,000 ML IV ONE (17:48)
[2018-12-10] MEDS: CYANOCOBALAMIN 1,000 MCG TABLET PO SCH (17:49)
[2018-12-10] MEDS ORDERED: QUEtiapine FUMARATE 25 MG TABLET PO SCH (21:00)
[2018-12-10] MEDS ORDERED: ASPIRIN 81 MG TAB.CHEW PO SCH (21:00)
[2018-12-10] MEDS: traZODone HCL 50 MG TABLET PO SCH (21:15)
[2018-12-10] MEDS: CARBIDOPA/LEVODOPA 25/100 1 TAB TABLET PO SCH (21:16)
[2018-12-10] MEDS ORDERED: SODIUM CHLORIDE 45 SPRAY BTL NS SCH (22:00)
[2018-12-11] MEDS: NORMAL SALINE 1,000 ML IV ONE (01:24)
[2018-12-11] MEDS: CIPROFLOXACIN IN 5 % DEXTROSE 200 MG/100 ML BAG IV SCH (01:25)
[2018-12-11] MEDS: LOPERAMIDE HCL 2 MG CAPSULE PO PRN ×2 (01:29→07:42)
[2018-12-11 05:48] LABS: Albumin * 2.9 gm/dl (3.4-5.0); Anion Gap 15.8 mmol/L (6.8-13.8); BUN/Creatinine Ratio 23.8 (9.0-21.6); Bilirubin, Total 0.6 mg/dL (0.0-1.1); Ca. Corrected For Albumin 8.6 mg/dL (8.4-10.2); Carbon Dioxide 21.7 mmol/L (24-32.6); Potassium 3.5 mmol/L (3.4-4.6); Total Protein 5.7 gm/dL (6.2-8.2)
[2018-12-11] MEDS: CARBIDOPA/LEVODOPA 25/100 1 TAB TABLET PO SCH (06:49)
[2018-12-11] MEDS ORDERED: LIOTHYRONINE SODIUM 5 MCG TABLET PO SCH (07:00)
[2018-12-11] MEDS ORDERED: PANTOPRAZOLE SODIUM 40 MG TABLET.EC PO SCH (07:00)
[2018-12-11 08:04] LABS: Hemoglobin 12.2 gm/dL (12.5-16.0); Mean Cell Volume 98.2 fl (78-100); Mean Corpuscular Hemoglobin 31.5 pg (27-31); Mean Corpuscular Hgb Conc 32.1 g/dl (32-36); Mean Platelet Volume 10.4 fl (8-12.5); Neutrophil # 4.4 K/mm3 (1.3-6.0); Neutrophil % 82.6 % (42-75.0); Platelet Count 164 K/mm3 (150-450); Red Blood Count 3.87 M/mm3 (4.2-5.4); Red Cell Distribution Width 13.3 % (11.5-14.0); White Blood Count 5.4 K/mm3 (4.0-10.5)
[2018-12-11] MEDS: traZODone HCL 50 MG TABLET PO SCH (08:37)
[2018-12-11] MEDS: LACTOBACILLUS ACIDOPHILUS 100 CAP BTL PO SCH ×2 (08:37→14:22)
[2018-12-11] MEDS: CYANOCOBALAMIN 1,000 MCG TABLET PO SCH (08:38)
[2018-12-11] MEDS ORDERED: LISINOPRIL 10 MG TABLET PO SCH (09:00)
[2018-12-11] MEDS ORDERED: FAMOTIDINE 20 MG TABLET PO SCH (09:00)
[2018-12-11] MEDS ORDERED: FLUoxetine HCL 20 MG CAPSULE PO SCH (09:00)
[2018-12-11] MEDS ORDERED: amLODIPine BESYLATE 5 MG TABLET PO ONE (11:33)
--- NOTE | 2018-12-11 11:45 | DS ---
(1) Intractable diarrhea Problem: Resolved (2) Dehydration, moderate Problem: Resolved (3) Psychosis Problem: Chronic (4) MDD (major depressive disorder) Problem: Chronic (5) UTI (urinary tract infection) Problem: Acute Description of Stay: 83-year-old female admitted for intractable diarrhea, moderate dehydration, generalized weakness was evaluated at bedside and was found to be afebrile and in no acute distress. Patient has shown significant clinical improvement, she looks hydrated compared to when she came to the hospital and stronger. During the evaluation patient was found to be sitting up in her arm chair and in a better mood. She was evaluated by physical therapy who assisted her out of bed and placed her in an arm chair. PT also recommended continued PT at home for deconditioning and weakness. Patient's diarrhea has improved her last loose bowel movement was 6:00 this morning, she denies abdominal pain, and there has not been recurrence of fever. This morning's labs demonstrate an improvement in her renal function and adequate electrolytes. Patient is also being treated with IV antibiotics for UTI and has not had any issues with the medication. C. difficile as well as stool cultures are negative. Therefore given these findings decision to discharge patient home with at-home physical therapy and additional days of p.o. antibiotics, probiotics, and Imodium was taken. Patient's was instructed to follow-up with her PCP and to follow-up on urine culture ordered here at the hospital. He expressed agreement with the plan and patient was pleased to be going home. Emma Singh is confined to the home due to limited ambulation and weakness in the lower extremities therefore the need for physical therapy is necessary for strengthening and endurance issues, gait and balance issues, mobility issues, activities of daily living, teaching to be safe, pain management, as well as range of motion and transfering. Based on my assessment patient will also need fpc for medication education and management, and reevaluation of UTI symptoms to monitor for worsening of her urinary tract infection. The need for home health care skilled services is directly related to the time spent [id number] with the person. Procedures Performed: none Results and Findings: Pending Mircobiology Results 12/10/18 Unknown Stool Stool Culture - Preliminary No Pathogens Isolated 12/10/18 12:34 Urine,Clean Catch Urine Culture - Preliminary No Growth Lab Pending Results 12/10/18 11:32: Stl C.difficile Tox A&B Negative 12/10/18 11:50: WBC 10.3, RBC 3.99 L, Hgb 12.6, Hct 39.3, MCV 98.5, MCH 31.6 H, MCHC 32.1, RDW 13.1, Plt Count 182, MPV 10.3, Immature Gran % (Auto) 0.50 H, Immature Gran # (Auto) 0.05 H, Neutrophils % 87.3 H, Lymphocytes % 5.1 L, Monocytes % 5.3, Eosinophils % 1.7, Basophils % 0.1, Nucleated RBC % 0.0, Neutrophils # 9.0 H, Lymphocytes # 0.52 L, Monocytes # 0.5, Eosinophils # 0.2, Absolute Basophils 0.0 12/10/18 11:50: Sodium 142, Plasma Sodium 142, Potassium 3.7, Chloride 106, Carbon Dioxide 25.6, Anion Gap 14.1 H, BUN 24 H, Creatinine 0.89, Est GFR (Non- Af Amer) 64, BUN/Creatinine Ratio 27.0 H, Random Glucose 108, Calcium 9.1, Calcium Adj for Albumin 9.1, Total Bilirubin 0.8, AST 16, ALT 7 L, Alkaline Phosphatase 92, Total Protein 7.3, Albumin 3.6, Amylase 36, Lipase 44 L 12/10/18 12:22: Urine Color Yellow, Urine Appearance Clear, Urine pH 6.0, Ur Specific Thomas >=1.030, Urine Protein Negative, Urine Glucose (UA) Negative, Urine Ketones 5, Urine Blood Negative, Urine Nitrate Negative, Urine Bilirubin Negative, Urine Urobilinogen Normal, Ur Leukocyte Esterase 25 H, Urine RBC 0-5, Urine WBC 5-10 H, Ur Epithelial Cells 0-5, Urine Bacteria 3+ H, Urine Culture Comments Culture to follow 12/11/18 05:15: Sodium 142, Plasma Sodium 142, Potassium 3.5, Chloride 108 H, Carbon Dioxide 21.7 L, Anion Gap 15.8 H, BUN 15, Creatinine 0.63, Est GFR (Non- Af Amer) 96 D, BUN/Creatinine Ratio 23.8 H, Random Glucose 78, Calcium 8.0, Calcium Adj for Albumin 8.6, Total Bilirubin 0.6, AST 22, ALT 6 L, Alkaline Phosphatase 72, Total Protein 5.7 L, Albumin 2.9 L 12/11/18 07:55: WBC 5.4 D, RBC 3.87 L, Hgb 12.2 L, Hct 38.0, MCV 98.2, MCH 31.5 H, MCHC 32.1, RDW 13.3, Plt Count 164, MPV 10.4, Immature Gran % (Auto) 0.20, Immature Gran # (Auto) 0.01, Neutrophils % 82.6 H, Lymphocytes % 8.6 L, Monocytes % 7.3, Eosinophils % 1.1, Basophils % 0.2, Nucleated RBC % 0.0, Neutrophils # 4.4, Lymphocytes # 0.46 L, Monocytes # 0.4, Eosinophils # 0.1, Absolute Basophils 0.0 Discharge Location: Home Disposition: Home Health Service Home Health Agency: [facility] Condition: Fair Face to Face Encounter completed per [facility] Guidelines: Yes Discharge Activity: Activity as tolerated Discharge Diet: General/regular food Problem Oriented Discharge Instructions to Patient/Family: Food Choices to Help Relieve Diarrhea, Adult, Dehydration, Elderly, [id number], Diarrhea, Adult, [id number] Additional Patient Instructions (free text): [facility] new, nursing and PT. Please fax orders, dc summary, facesheet and call report upon discharge. Patient sees Dr Downey at [facility]. Has appointment with another physician at [facility] 12/26/18 at 1pm. Asking to see if appointment can be made later that same day with Dr Downey for f/u. Follow up appointment with Dr. Downey on 12/23/18 at 3:00pm. Prescriptions (Any new or edited meds): Ciprofloxacin HCl [Cipro] 250 mg PO BID 3 Days #6 tab Lactobacillus Acidophilus [Acidophilus Probiotic] 0.5 mg PO TID 10 Days #30 tab Loperamide HCl [Imodium] 2 mg PO TID PRN #30 cap PRN Reason: Diarrhea Complete Home Medications List: Complete Home Medication List: Aspirin [Children's Aspirin] 162 mg PO HS 08/17/18 FLUoxetine HCL [Fluoxetine HCl] 20 mg PO DAILY 08/17/18 Lisinopril [Zestril] 10 mg PO DAILY 08/17/18 QUEtiapine FUMARATE [Seroquel] 25 mg PO HS 08/17/18 traZODone HCL [Trazodone HCl] 25 mg PO BID 08/17/18 Carbidopa/Levodopa 25/100 [Sinemet 25/100] 0.5 tab PO TID 08/18/18 Cyanocobalamin (Vitamin B-12) [Vitamin B-12] 1,000 mcg PO DAILY 12/10/18 Liothyronine Sodium 37.5 mcg PO DAILY 12/10/18 Omeprazole 40 mg PO DAILY 12/10/18 Simethicone [Gas Relief] 80 mg PO Q6H PRN 12/10/18 Ciprofloxacin HCl [Cipro] 250 mg PO BID 3 Days #6 tab 12/11/18 Lactobacillus Acidophilus [Acidophilus Probiotic] 0.5 mg PO TID 10 Days #30 tab 12/11/18 Loperamide HCl [Imodium] 2 mg PO TID PRN #30 cap 12/11/18
[2018-12-11 14:19] VITALS: BP 130/70
== END 2018-12-11 13:50 | disposition home health service (06) ==
LOC: MS 10:41 → ER 10:41 → MS 14:20
PROVIDERS: ADMIT Family Medicine; ATTEND Family Medicine
CPT/HCPCS: 36415; 74019; 74020; 80053; 81001; 82150; 83690; 85025; 87045; 87046; 87086; 87493; 93005; 96360; 96361; 96365; 96367; 97161; 99285; G0378